=== PATIENT | male | born 1945 | race Caucasian/White ===

== ENCOUNTER → 2018-04-02 06:29 | Outpatient (CLI) | payer MEDICARE, OTHER, SELFPAY ==
--- NOTE | 2018-04-02 18:06 | STRESSREP_ITS ---
Stress Test Report Date: 04/02/2018 Procedure: Pharmacologic stress nuclear imaging study Indications: Chest pain Consent: Per the patient Procedure: The patient underwent pharmacologic (Regadenoson) evaluation with a peak heart rate of 90 beats per minute (61 predicted maximal heart rate) and a peak blood pressure of 162/66 mmHg. The baseline ECG demonstrated normal sinus rhythm. The peak pharmacologic ECG demonstrated no obvious ECG changes. There were no cardiac dysrhythmias pretest, during pharmacologic infusion, or recovery. There was no complaint of chest discomfort during pharmacologic infusion or recovery. The examination was discontinued secondary to completion of protocol. Impression: 1. Pharmacologic (Regadenoson) evaluation 2. Peak pharmacologic ECG with no obvious ECG changes. 3. There were no cardiac dysrhythmias pretest, during pharmacologic infusion, or recovery 4. Nuclear images pending Myocardial perfusion imaging study: Technique: The patient was injected with 11.9 millicuries of technetium 99m Cardiolite and subsequently rest SPECT Cardiolite nuclear imaging was obtained in the horizontal long, vertical long, and short axis views. The patient underwent pharmacologic (Regadenoson) evaluation with a peak heart rate of 90 beats per minute (61 % percent predicted maximal heart rate) and a peak blood pressure of 162/66 mmHg. The patient was injected with 34.4 millicuries of technetium 99m Cardiolite and subsequently stress SPECT Cardiolite nuclear imaging was obtained in the horizontal long, vertical long, and short axis views. A gated Cardiolite study at peak stress was obtained. Interpretation: Rest and stress SPECT Cardiolite nuclear imaging status post realignment, normalization, and attenuation correction demonstrate relative uniform tracer uptake and myocardial perfusion appearing within normal limits. There is end systolic thickening and brightening. The gated Cardiolite study demonstrates myocardial thickening and inward wall motion. The reported LVEF is 66 %. Impression: 1. Rest and stress SPECT Cardiolite nuclear imaging demonstrate relative uniform tracer uptake and myocardial perfusion appearing within normal limits. 2. The gated Cardiolite study reports an LVEF of 66 %. This note was generated with [employer] software. It may contain incorrect words, spelling, and punctuation that were not noted in checking the note before signing.
== END ==
PROVIDERS: Family Provider Physician Assistant; PCP Physician Assistant; Visit Provider Physician Assistant
DX: R07.9 Chest pain, unspecified (principal)
CPT/HCPCS: 78452; 93017; A9500; A4216; J2785

== ENCOUNTER → 2019-05-23 10:42 | Outpatient (CLI) | payer MEDICARE, OTHER, SELFPAY ==
[2019-05-23 11:15] VITALS: BP 103/48; PULSE 103; RESP 16; TEMP 36.7; O2SAT 98; BMI 21.7
[2019-05-23 11:47] VITALS: BP 108/47; PULSE 94; RESP 16; TEMP 36.8; O2SAT 96
[2019-05-23 12:47] VITALS: BP 115/52; PULSE 92; RESP 16; TEMP 36.7
[2019-05-23 13:47] VITALS: BP 122/59; PULSE 97; RESP 16; TEMP 37.4; O2SAT 97
== END ==
PROVIDERS: Family Provider Physician Assistant; PCP Physician Assistant; Referring Provider Internal Medicine Hematology & Oncology; Visit Provider Internal Medicine Hematology & Oncology
DX: Z51.89 Encounter for other specified aftercare (principal); D64.9 Anemia, unspecified; C61 Malignant neoplasm of prostate; C82.13 Follicular lymphoma grade II, intra-abdominal lymph nodes
CPT/HCPCS: 36430; 86850; 86900; 86901; 86920; 86922; J7040; P9016; A4216

== ENCOUNTER → 2019-06-06 09:27 | Outpatient (CLI) | payer MEDICARE, OTHER, SELFPAY ==
[2019-05-23 11:15] VITALS: BMI 21.7
[2019-06-06] VITALS (7 sets, daily range): BP systolic 142–163; BP diastolic 49–64; PULSE 71–81; RESP 16; TEMP 36.2–36.9; O2SAT 97–98; BMI 22.3
== END ==
PROVIDERS: Family Provider Physician Assistant; PCP Physician Assistant; Referring Provider Internal Medicine Hematology & Oncology; Visit Provider Internal Medicine Hematology & Oncology
DX: Z51.89 Encounter for other specified aftercare (principal); D64.81 Anemia due to antineoplastic chemotherapy
CPT/HCPCS: 36430; 86850; 86900; 86901; 86920; 86922; J7040; P9016; A4216

== ENCOUNTER 2020-07-20 09:54 | Emergency (ER) | payer MEDICARE, OTHER, SELFPAY ==
[2019-06-06 09:45] VITALS: BMI 22.3
[2020-07-20 09:56] VITALS: BP 111/56; PULSE 116; RESP 14; TEMP 36.4; O2SAT 96; BMI 23.9
[2020-07-20 09:58] VITALS: BP 111/56; PULSE 116; RESP 14; TEMP 36.4; O2SAT 96
--- NOTE | 2020-07-20 10:37 | RAD_ITS ---
STUDY: X-RAY CHEST REASON FOR EXAM: Male, 75 years old. NEUTROPENIC FEVER, CHEMO FOR LYMPHOMA TECHNIQUE: PA and lateral views of the chest. COMPARISON: None. FINDINGS: EKG electrodes are seen. Hyperinflation. Mild increased interstitial markings at the lung bases suggestive of scarring. Minimal linear calcific plaques at the right lung base. Normal size heart. Normal mediastinum and kiet. Normal visualized pulmonary arteries. There is atherosclerotic calcification of the aortic arch with tortuosity. There are diffuse degenerative changes of the visualized thoracic spine. Deformities of the anterior aspect of the lower left and right ribs. There is no demonstrated abnormality of the visualized soft tissue structures of the upper abdomen. RAD/Chest PA and Lateral IMPRESSION: Hyperinflation and basilar scarring. Right calcified pleural plaques. Deformity of the anterior aspect of the lower ribs bilaterally suggestive of either old trauma or possible metastasis. Electronically Signed: Jerel Huston, at 12:38 EDT , Service support ,
--- NOTE | 2020-07-20 10:40 | ED.DCSUM_ITS ---
History of Present Illness Chief Complaint: Fever Informant: Patient, Family Narrative: 75-year-old male presenting for evaluation due to history of lymphoma currently receiving chemotherapy since last Sunday. He states that he has been having chills as well as low-grade fevers at home. His states he had a 100.3 fever the other day. He does not have a cough. He has decreased appetite. He states he does get hot and cold sensation. He feels more tired than usual. Patient was seen by Dr. Carmen ferrari in his office and was noted to have a 101.7 fever. Patient states he took nothing for fever prior to arrival and he is afebrile here. Other than feeling tired he states he feels generally okay at the moment. Past Medical History - Allergies and Home Meds Allergies/Adverse Reactions: Allergies No Known Allergies Allergy (Verified 07/20/20 09:55) Primary Care Physician: Soraya Malcolm PA [Primary Care Provider] - Prior records reviewed: Yes Past Medical History: - - Gout, hypertension, lymphoma Lives: Spouse/ Significant Other Smoking Status: Former smoker Alcohol: None Drugs: None Review of Systems General: Reports: Chills, Fever, Malaise, Sweats Eyes: Denies: Visual changes - bilaterally, Diplopia ENT: Denies: Rhinorrhea, Sore throat Cardiovascular: Denies: Chest pain, Palpitations Gastrointestinal: Reports: - - Decreased appetite. Denies: Abdominal pain Musculoskeletal: Reports: Myalgias Skin: Denies: Rash, Wounds Neurological: Denies: Headache, Weakness, Numbness Physical Exam Vital Signs/Narrative: Vital Signs Temp Pulse Resp BP Pulse Ox 07/20/20 09:58 97.6 F L 116 H 14 111/56 L 96 07/20/20 09:56 97.6 F L 116 H 14 111/56 L 96 Inital Vital Signs reviewed: Yes General: Well nourished, No Acute Distress Head: Normocephalic, Atraumatic Eyes: Perrl, EOMI ENT: Moist mucous membranes, No rhinorrhea Cardiovascular: Regular rate, Regular rhythm Respiratory: No distress, CTA bilaterally Abdomen: Soft, Nontender Extremities: Nontender, No edema Skin: Normal color, No rash Neurological: Alert, Oriented x3 Psychological: Normal affect Diagnostic/Tx/Re-eval Clinical Impression(s) from Imaging Studies Chest X-Ray 07/20/20 10:37 IMPRESSION: Hyperinflation and basilar scarring. Right calcified pleural plaques. Deformity of the anterior aspect of the lower ribs bilaterally suggestive of either old trauma or possible metastasis. Electronically Signed: Jerel Huston, at 12:38 EDT , Service support , Laboratory Data 07/20/20 07/20/20 07/20/20 11:35 11:55 11:55 WBC 8.4 RBC 2.67 L Hgb 7.9 L Hct 25.0 L MCV 93.6 MCH 29.6 MCHC 31.6 L RDW Std Deviation 49.6 H RDW Coeff of Ifeanyi 14.6 Plt Count 195 MPV 10.5 Immature Gran % (Auto) 0.600 Neut % (Auto) 69.7 Lymph % (Auto) 19.7 Calloway % (Auto) 7.3 Eos % (Auto) 2.3 Baso % (Auto) 0.4 Absolute Neuts (auto) 5.8 Absolute Lymphs (auto) 1.65 Nucleated RBC % 0 PT 13.6 INR 1.1 APTT 33.3 Sodium Potassium Chloride Carbon Dioxide Anion Gap BUN Creatinine Estim Creat Clear Calc Est GFR (MDRD) Af Amer Est GFR (MDRD) Non-Af BUN/Creatinine Ratio Glucose Lactic Acid Calcium Total Bilirubin AST ALT Alkaline Phosphatase Total Protein Albumin Globulin Albumin/Globulin Ratio Urine Color Urine Clarity Urine pH Ur Specific [place] Urine Protein Urine Glucose (UA) Urine Ketones Urine Occult Blood Urine Nitrite Urine Bilirubin Urine Urobilinogen Ur Leukocyte Esterase Urine RBC Urine WBC Ur Squamous Epith Cells Urine Bacteria Urine Mucus COVID-19 (JOAN) Not Detected 07/20/20 07/20/20 07/20/20 11:55 11:55 12:50 WBC RBC Hgb Hct MCV MCH MCHC RDW Std Deviation RDW Coeff of Ifeanyi Plt Count MPV Immature Gran % (Auto) Neut % (Auto) Lymph % (Auto) Calloway % (Auto) Eos % (Auto) Baso % (Auto) Absolute Neuts (auto) Absolute Lymphs (auto) Nucleated RBC % PT INR APTT Sodium 138 Potassium 4.1 Chloride 103 Carbon Dioxide 27.0 Anion Gap 8 BUN 22 H Creatinine 1.48 H Estim Creat Clear Calc 43.84 Est GFR (MDRD) Af Amer 59 L Est GFR (MDRD) Non-Af 49 L BUN/Creatinine Ratio 14.9 Glucose 103 Lactic Acid 0.6 Calcium 9.9 Total Bilirubin 0.40 AST 18 ALT 18 Alkaline Phosphatase 100 Total Protein 6.5 Albumin 3.1 L Globulin 3.4 Albumin/Globulin Ratio 0.9 Urine Color Yellow Urine Clarity Sl. 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 On arrival he has no fever and has not taken anything that would mask a fever. He states other than being generally tired he does not have significant symptoms except for what he believes are due to chemotherapy. Patient's lab work was unremarkable. Covid swab was negative. Chest x-ray is negative. Patient was pancultured due to possibility of neutropenic fever. Patient was discussed with Dr. Morales who felt that given the patient's normal lab work-up, normal vitals he was safe to be discharged home. He will follow up with him on an outpatient basis. Patient will discontinue the use of his new medication over the weekend. A viral panel was ordered prior to his discharge. He follow-up for the results of this. Patient discharged home in stable condition Impression: 1. Fever unknown origin 2. Possible medication side effect ED Disposition - Plan for ED Patient: Disposition: Home or Assisted Living Instructions: ED FUO Adult Referrals: Soraya Malcolm PA [Primary Care Provider] -
[2020-07-20] MEDS: 0.9% Normal Saline 1,000 ML 50 ML IV (12:09)
[2020-07-20 12:13] VITALS: BP 128/58; PULSE 98; RESP 18; TEMP 36.9; O2SAT 97
[2020-07-20 12:14] LABS: International Normalized Ratio 1.1; Prothrombin Time (Protime)PT. 13.6 SECONDS (11.7-14.9)
[2020-07-20 12:15] LABS: Partial Thromboplast Time 33.3 Seconds (24.1-36.2)
[2020-07-20 12:22] LABS: ALB/GLOB Ratio 0.9 RATIO (0.9-2.4); AST(SGOT) 18 U/L (15-37); Alanine Aminotransfer ALT/SGPT 18 U/L (16-61); Albumin, Serum 3.1 g/dL (3.2-5.0); Alkaline Phosphatase 100 U/L (45-117); Anion Gap 8 (5-15); BUN 22 mg/dL (7-18); BUN/Creat Ratio 14.9 RATIO (10-20); Calcium,Total 9.9 mg/dL (8.5-10.1); Chloride 103 mmol/L (98-107); Creatinine, Serum 1.48 mg/dL (0.70-1.30); EST Glomerular Filtration Rate 49 mL/min (>60); Est Glom Filt Rate - Afr Amer 59 mL/min (>60); Estimated Creatinine Clearance 43.84 ml/min; Globulin 3.4 g/dL (2.2-4.2); Glucose 103 mg/dL (74-106); Potassium 4.1 mmol/L (3.5-5.1); Protein, Total 6.5 g/dL (6.4-8.2); Sodium Level 138 mmol/L (136-145)
[2020-07-20 12:35] LABS: Absolute Lymphocyte Count 1.65 X10^3/uL (0.83-4.51); Absolute Neutrophil Count 5.8 X10^3/uL (2.0-7.7); Basophil# 0.03 X10^3/uL; Basophil% 0.4 % (0-1); Eosinophil# 0.19 X10^3/uL; Eosinophils% 2.3 % (0-5); Hemoglobin 7.9 g/dL (13.0-16.5); Lymphocyte # 1.65 X10^3/ul (4.0); Lymphocyte % 19.7 % (19-41); Mean Corp Hgb Conc 31.6 g/dL (32-36); Mean Corpuscular Hgb 29.6 pg (27.0-32.0); Mean Corpuscular Volume 93.6 fL (80-94); Mean Platelet Vol. 10.5 fl (6.2-12.0); Monocyte# 0.61 X10^3/uL; Monocyte% 7.3 % (0-10); NRBC Flagged by Analyzer 0 % (0-5); Neutrophil # 5.84 X10^3/uL (2.7-7.7); Neutrophil % 69.7 % (47-70); Platelet Count 195 K/mm3 (150-450); RBC Distribution Width CV 14.6 % (11.6-14.6); RBC Distribution Width SD 49.6 fl (35.1-43.9); Red Blood Count 2.67 M/mm3 (4.6-6.2); White Blood Count 8.4 K/mm3 (4.4-11.0)
[2020-07-20 12:40] LABS: Lactic Acid 0.6 mmol/L (0.4-1.9)
[2020-07-20 12:57] LABS: Mucous, Urine 0 SEEN /hpf (<or=2+); Red Blood Cells-Urine 0 SEEN /hpf (0-5)
[2020-07-20 13:00] VITALS: BP 120/53; PULSE 89; RESP 16; TEMP 35.3; O2SAT 98
[2020-07-20 13:02] LABS: Color, Urine Yellow (Yellow); Glucose, Dipstick Normal (Normal); Ketone-Dipstick Negative (Negative); Leukocyte Esterase-Dipstick 25 /ul (Negative); Nitrite-Dipstick Negative (Negative); Occult Blood-Urine Negative /ul (Negative); Protein-Dipstick 30 mg/dl (Negative); Specific Gravity, Urine 1.015 (1.002-1.030); Urine Bilirubin Dipstick Negative (Negative); Urine Clarity Sl. Cloudy (Clear); Urine Urobilinogen Normal (Normal)
[2020-07-20 13:06] LABS: Squamous Epithelial Cells - UA 0-5 SEEN /hpf (0-5); White Blood Cells 0-5 SEEN /hpf (0-5)
[2020-07-20 13:07] LABS: Bacteria RARE /hpf (None Seen)
[2020-07-20 14:28] VITALS: BP 125/83; PULSE 81; RESP 14; O2SAT 98
== END 2020-07-20 14:29 | disposition home or self-care (01) ==
PROVIDERS: Emergency Provider Student in an Organized Health Care Education/Training Program; PCP Physician Assistant
DX: R50.9 Fever, unspecified (principal); I10 Essential (primary) hypertension; C85.90 Non-Hodgkin lymphoma, unspecified, unspecified site; Z79.899 Other long term (current) drug therapy; Z87.891 Personal history of nicotine dependence
CPT/HCPCS: 71046; 80053; 81001; 83605; 85025; 85610; 85730; 87040; 87086; 87633; 87635; 96360; 96361; 99284; J7030; A4216; U0003